=== PATIENT | male | born 1975 | race African-American/Black ===

== ENCOUNTER 2019-09-24 19:48 | Emergency (ER) | payer BC ==
[~2019-09-24] VITALS: Ht 182.9 cm; Wt 90.7 kg
[2019-09-24 19:58] VITALS: BP 128/81
[2019-09-24] MEDS ORDERED: IBUPROFEN 600 MG TABLET PO ONE ×2 (20:29→20:30)
[2019-09-24] MEDS ORDERED: HYDROCODONE/APAP 10/325MG 1 EA TABLET ONE (20:29)
[2019-09-24] MEDS ORDERED: HYDROCODONE/APAP 10/325MG 1 EA TABLET PO ONE (20:30)
== END 2019-09-24 21:30 | disposition home or self-care (01) ==
LOC: ER 19:52
DX: S50.01XA Contusion of right elbow, initial encounter (principal); W01.0XXA Fall on same level from slipping, tripping and stumbling without subsequent striking against object, initial encounter; Y93.89 Activity, other specified; Y92.89 Other specified places as the place of occurrence of the external cause; Y99.8 Other external cause status
CPT/HCPCS: 73080-TC